=== PATIENT | female | born 2005 | race African-American/Black ===

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

== ENCOUNTER 2024-06-17 18:14 | Emergency (ER) | payer SELFPAY ==
--- NOTE | 2024-06-17 18:58 | RAD REPORT ---
EXAMINATION: TWO VIEW CHEST XR CLINICAL INDICATION: Female, 18 years old. [facility] MAIN Congestion;Cough Bed: TECHNIQUE: 2 view radiographs of the chest were performed. COMPARISON: 07/22/2023 FINDINGS: The lungs are well inflated and clear. No pneumothorax or sizable effusion. The heart is normal in si ze. Mediastinal contours are unremarkable. IMPRESSION: No acute or significant abnormalities.
[2024-06-17 19:11] LABS: SARS-CoV-2 Antigen CONTROL BLUE LINE VIS/BG OK; SARS-CoV-2 Antigen Rapid Res Negative (Negative)
--- NOTE | 2024-06-17 19:11 | EDPHYS ---
Physician Documentation [facility] Name: Shania Vanegas Age: 18 yrs Sex: Female : 2005 Arrival Date: 06/17/2024 Time: 18:14 Bed 17 Private MD: ED Physician Bereket Bauer HPI: 06/18 01:09 This 18 yrs old Black Female presents to ER via Ambulatory with complaints of Flu dr5 Symptoms. 01:09 Onset: The symptoms/episode began/occurred yesterday. Patient is a 18-year-old female dr5 with no past med history coming in with flulike symptoms that started yesterday. Patient denies chest pain, shortness of breath, nausea, vomiting, diarrhea.. 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 - Infectious Disease History:: Denies. - Social history:: Smoking status: Reported history of juuling and/or vaping. ROS: 06/18 01:09 Constitutional: as per hpi dr5 Exam: 01:09 Constitutional: This is a well developed, well nourished patient who is awake, alert, dr5 and in no acute distress. Head/Face: Normocephalic, atraumatic. Eyes: Pupils equal round and reactive to light, extra-ocular motions intact. Lids and lashes normal. Conjunctiva and sclera are non-icteric and not injected. Cornea within normal limits. Periorbital areas with no swelling, redness, or edema. ENT: Nares patent. No nasal discharge, no septal abnormalities noted. Tympanic membranes are normal and external auditory canals are clear. Oropharynx with no redness, swelling, or masses, exudates, or evidence of obstruction, uvula midline. Mucous membranes moist. Chest/axilla: Normal chest wall appearance and motion. Nontender with no deformity. No lesions are appreciated. Cardiovascular: Regular rate and rhythm with a normal S1 and S2. Normal PMI, no JVD. No pulse deficits. Respiratory: Lungs have equal breath sounds bilaterally, clear to auscultation. No rales, rhonchi or wheezes noted. No increased work of breathing, no retractions or nasal flaring. Back: No spinal tenderness. No costovertebral tenderness. Full range of motion. Skin: Warm, dry with normal turgor. Normal color with no rashes, no lesions, and no evidence of cellulitis. MS/ Extremity: Pulses equal, no cyanosis. Neurovascular intact. Full, normal range of motion. Neuro: Awake and alert, GCS 15, oriented to person, place, time, and situation. Cranial nerves II-XII grossly intact. Motor strength 5/5 in all extremities. Sensory grossly intact. Cerebellar exam normal. Normal gait. Vital Signs: 06/17 18:46 BP 127 / 88; Pulse 125; Resp 18; Temp 101.3(O); Pulse Ox 100% ; Weight 72.57 kg; Height db 5 ft. 56 in. ; 18:46 Body Mass Index 8.36 (72.57 kg, 294.64 cm) - Percentile 0.0 % db MDM: 18:22 Medical Screening Exam initiated dr5 06/18 01:09 Differential diagnosis: viral Infection, bacterial infection, URI, COVID, influenza. dr5 Data reviewed: vital signs, nurses notes, lab test result(s), Flu: positive radiologic studies, plain films. I considered the following discharge prescriptions or medication management in the emergency department Medications were administered in the Emergency Department. See MAR. Care significantly affected by the following Social Determinants of Health: Poor access to healthcare and/or lack of insurance, Poor access to transportation, Problems related to employment. Counseling: I had a detailed discussion with the patient and/or guardian regarding the historical points, exam findings, and any diagnostic results supporting the discharge/admit diagnosis, the presence of at least one elevated blood pressure reading (>120/80) during this emergency department visit, lab results, the need for outpatient follow up, for definitive care, a family practitioner, to return to the emergency department if symptoms worsen or persist or if there are any questions or concerns that arise at home. ED course: Will send patient home with Tamiflu. Recommended increased hydration, alternate Tylenol and Motrin as needed for fever. Recommended ohth-tlq-lfromue medications for cough, congestion. All questions answered.. 06/17 18:20 Order name: SARS RAPID; Complete Time: 19:18 dr5 06/17 18:20 Order name: Influenza Screen (a \T\ B); Complete Time: 19:11 dr5 06/17 18:20 Order name: Chest Pa And Lat (2 Views) XRAY; Complete Time: 19:03 dr5 Administered Medications: 06/17 19:15 Drug: Ibuprofen PO 600 mg PO once Route: PO; rg5 19:18 Follow up: Response: No adverse reaction; Pain is decreased rg5 Disposition: 06/18 09:01 Co-signature as Attending Physician, Bereket Bauer MD I reviewed the patient's care rt provided by the Advanced Practice Provider and agree with the diagnosis and treatment plan. Disposition Summary: 06/17/24 19:11 Discharge Ordered Notes: Location: Home dr5 Condition: Stable dr5 Diagnosis - Influenza due to identified novel influenza A virus dr5 Followup: dr5 - With: Emergency Department - When: As needed - Reason: Worsening of condition Followup: dr5 - With: Private Physician - When: 1 - 2 days - Reason: Recheck today's complaints, Continuance of care, Re-evaluation by your physician Discharge Instructions: - Discharge Summary Sheet dr5 - Influenza, Adult dr5 Forms: - Work release form dr5 - Medication Reconciliation Form dr5 - Patient Portal Instructions dr5 - Leadership Thank You Letter dr5 Prescriptions: - Tessalon Perles 100 mg Oral Capsule - take 1 capsule ORAL route every 8 hours As needed; 15 capsule; Refills: 0, dr5 Product Selection Permitted - Tamiflu 75 mg Oral capsule - take 1 tablet ORAL route every 12 hours for 5 days; 10 tablet; Refills: 0, dr5 Product Selection Permitted Signatures: Dispatcher [employer] Carrie Diop, Bereket Donato RN, MD MD rt Gallardo, Rommel, RN RN rg5 Eulalio Nielsen, [employer]TER AND TOUR BUS DRIVER-C [employer]TER [employer] TOUR BUS DRIVER-Cdr5
--- NOTE | 2024-06-17 19:11 | ER ---
Nurse's Notes [facility] Name: Shanai Vanegas Age: 18 yrs Sex: Female : 2005 Arrival Date: 06/17/2024 Time: 18:14 Bed 17 Private MD: Diagnosis: Influenza due to identified novel influenza A virus Presentation: 06/17 18:46 Chief complaint: Patient states: REPORTS FLU LIKE SYMPTOMS, CHILLS, HEADACHE, BODY db ACHES, ABD PAIN, DECREASED APPETITE, TIRED, COUGH AND RUNNY NOSE SINCE YESTERDAY STATES TOOK OTC MEDS. Coronavirus screen: Client denies travel out of the [place] in the last 14 days. At this time, the client does not indicate any symptoms associated with coronavirus-19. Ebola Screen: Patient negative for fever greater than or equal to 101.5 degrees Fahrenheit, and additional compatible Ebola Virus Disease symptoms Patient denies exposure to infectious person. Patient denies travel to an Ebola-affected area in the 21 days before illness onset. No symptoms or risks identified at this time. Initial Sepsis Screen: Does the patient meet any 2 criteria? Temp <36.0*C (96.8*F)) or > 38.3*C (100.9*F). HR > 90 bpm. Yes Does the patient have a suspected source of infection? No. Patient's initial sepsis screen is negative. Risk Assessment: Do you want to hurt yourself or someone else? Patient reports no desire to harm self or others. Onset of symptoms was June 17, 2024. 18:46 Method Of Arrival: Ambulatory db 18:46 Acuity: MORELIA 3 db Triage Assessment: 18:48 General: Appears in no apparent distress. comfortable, Behavior is calm, cooperative, db appropriate for age. Pain: Complains of pain in head and abdomen. TALENT REP: 18:48 LMP 05/21/2024, unknown db Historical: - Allergies: 18:48 No Known Allergies; db - PMHx: 18:48 None; db - Immunization history:: Adult Immunizations unknown. - Infectious Disease History:: Denies. - Social history:: Smoking status: Reported history of juuling and/or vaping. Screenin:15 [facility] ED Fall Risk Assessment (Adult) History of falling in the last 3 months, rg5 including since admission No falls in past 3 months (0 pts) Confusion or Disorientation No (0 pts) Intoxicated or Sedated No (0 pts) Impaired Gait No (0 pts) Mobility Assist Device Used No (0 pt) Altered Elimination No (0 pt) Score/Fall Risk Level 0 - 2 = Low Risk Oriented to surroundings, Maintained a safe environment. 19:15 Abuse screen: Denies threats or abuse. Nutritional screening: No deficits noted. rg5 Tuberculosis screening: No symptoms or risk factors identified. Assessment: 19:15 General: Appears in no apparent distress. Behavior is calm, cooperative, appropriate rg5 for age. Neuro: Level of Consciousness is Oriented to person, place, time. 19:15 Respiratory: Airway is patent Trachea midline Respiratory effort is even, unlabored, rg5 Respiratory pattern is regular, symmetrical. GI: Abdomen is flat, non-distended. Vital Signs: 18:46 BP 127 / 88; Pulse 125; Resp 18; Temp 101.3(O); Pulse Ox 100% ; Weight 72.57 kg; Height db 5 ft. 56 in. ; 18:46 Body Mass Index 8.36 (72.57 kg, 294.64 cm) - Percentile 0.0 % db ED Course: 18:19 Patient arrived in ED. mr 18:19 Eulalio Nielsen, EDWAR[facility] 18:19 Bereket Bauer MD is Attending Physician. dr5 18:34 Chest Pa And Lat (2 Views) XRAY In Process Unspecified. EDMS 18:48 Triage completed. db 18:48 Arm band placed on. db 18:58 Influenza Screen (a \T\ B) Sent. db 18:58 SARS RAPID Sent. db 19:11 Notified Nurse Practitioner and/or Physician [employer] Specialist of a critical lab result(s), me1 positive for flu A. 19:15 Patient has correct armband on for positive identification. Bed in low position. Call rg5 light in reach. 19:15 No provider procedures requiring assistance completed. Patient did not have IV access rg5 during this emergency room visit. 19:20 Provided Education on: post er care done. rg5 Administered Medications: 19:15 Drug: Ibuprofen PO 600 mg PO once Route: PO; rg5 19:18 Follow up: Response: No adverse reaction; Pain is decreased rg5 Medication: 19:15 VIS not applicable for this client. rg5 Outcome: 19:11 Discharge ordered by MD. esposito 19:20 Discharged to home rg5 19:20 Condition: stable rg5 19:20 Discharge instructions given to family, Instructed on discharge instructions, Demonstrated understanding of instructions, 19:22 Patient left the ED. rg5 Signatures: Dispatcher [employer] EDNM Marilee Anguiano, Reg Reg mr Carrie Schroeder, RN ENMANUEL db Fabi Ayoub RN RN pa1 Noble Garcia RN RN rg5 Eulalio Nielsen, HAND OUTSIDE CUTTER-C HAND OUTSIDE CUTTER-[facility]
[2024-06-18 04:20] VITALS: BP 127/88; TEMP 101.3; O2SAT 100
== END 2024-06-17 19:22 | disposition home or self-care (01) ==
LOC: ER 18:14
DX: J10.1 Influenza due to other identified influenza virus with other respiratory manifestations (principal); Z11.52 Encounter for screening for COVID-19
CPT/HCPCS: 36415; 71046; 87804; 87811